=== PATIENT | female | born 1985 | race African-American/Black ===

== ENCOUNTER 2018-08-09 10:05 | Outpatient (CLI) | payer BC, OTHER ==
--- NOTE | 2018-08-09 13:46 | MRI ---
MRI Upper Ext Jt Lt WO Con History: [Rotator cuff tear. End 75.102] Comparison: None. Findings: Biceps tendon: The extra-articular and intra-articular biceps tendon are normal Labrum: Intact Rotator cuff: Intact Bones: Type II acromion. Narrowing subacromial space due to lateral downsloping. There is associated mild bursal surface fraying of the supraspinous tendon with small subacromial/subdeltoid bursa effusion. Muscles: Muscle bulk is normal. No significant atrophy. Bones: Normal glenoid version. No acromial ossicle. Impression: Type II acromion with lateral downsloping and subacromial narrowing. There is subsequent low-grade bursal surface fraying and small subacromial/subdeltoid bursa effusion.
== END 2018-08-09 10:06 | disposition home or self-care (01) ==
LOC: SCSMRI 10:05
PROVIDERS: ATTEND Orthopaedic Surgery
DX: Z03.89 Encounter for observation for other suspected diseases and conditions ruled out (principal); M25.412 Effusion, left shoulder; M25.812 Other specified joint disorders, left shoulder